=== PATIENT | male | born 1955 | race Caucasian/White ===

== ENCOUNTER 2020-10-24 08:03 | Day surgery (SDC) | payer MEDICARE, OTHER ==
[~2020-10-24] VITALS: Ht 177.8 cm; Wt 91.0 kg
[~2020-10-24 08:03] MED LIST: FINA1TAB16 PO; MELO7.5T31 PO; OMEP-110 PO; ONDA4TAB7 PO; OXYC1TAB14 PO; SULF-23 PO; TAMS0.4C2 PO
[2020-10-24] MEDS ORDERED: LABETALOL 5MG/ML, 20ML IV PRN (08:30)
[2020-10-24] MEDS ORDERED: ALBUTEROL SULFATE 2.5 MG/3 ML NPPB PRN (08:30)
[2020-10-24] MEDS ORDERED: HYDROmorphone 1 MG/ML, 1ML INJ IVPush PRN (08:30)
[2020-10-24] MEDS ORDERED: PROMETHAZINE 25 MG/ML, 1ML IVPush PRN (08:30)
[2020-10-24] MEDS ORDERED: MIDAZOLAM 1 MG/ML, 2ML IV PRN (08:30)
[2020-10-24] MEDS ORDERED: ACETAMINOPHEN 325 MG TABLET PO PRN (08:30)
[2020-10-24] MEDS ORDERED: MEPERIDINE/PF 25MG/0.5ML IVPush PRN (08:30)
[2020-10-24] MEDS ORDERED: OXYcodone 5 MG/5 ML ORAL.SOL UDC PO PRN (08:30)
[2020-10-24 08:35] VITALS: BP 120/80
[2020-10-24] MEDS ORDERED: INDOCYANINE GREEN 25 MG VIAL ONE (08:43)
[2020-10-24] MEDS ORDERED: LACTATED RINGERS 1,000 ML IV SCH (09:00)
[2020-10-24] MEDS ORDERED: CHLORHEXIDINE 15 ML UDC PO ONE (09:00)
[2020-10-24] MEDS ORDERED: EPINEPHRINE 1 MG/ML, 1ML ONE (09:08)
[2020-10-24] MEDS ORDERED: BUPIVACAINE/PF 0.5% ONE (09:08)
[2020-10-24] MEDS ORDERED: INDOCYANINE GREEN 25 MG VIAL IVPush ONE (09:30)
[2020-10-24] MEDS ORDERED: MIDAZOLAM 1 MG/ML, 2ML ONE (09:48)
[2020-10-24] MEDS ORDERED: FENTANYL PF 250 MCG/5ML ONE (09:49)
[2020-10-24] MEDS ORDERED: METHOCARBAMOL 1,000 MG in DEXTROSE 5% 100 ML IV PRN (10:00)
[2020-10-24] MEDS ORDERED: CEFAZOLIN 1,000 MG ONE (11:05)
[2020-10-24] MEDS ORDERED: PROPOFOL 10 MG/ML, 20ML ONE (11:05)
[2020-10-24] MEDS ORDERED: NEOSTIGMINE 1 MG/ML, 10ML ONE (11:05)
[2020-10-24] MEDS ORDERED: ROCURONIUM 10MG/ML,5ML ONE (11:05)
[2020-10-24] MEDS ORDERED: ONDANSETRON 2MG/ML, 2ML ONE (11:05)
[2020-10-24] MEDS ORDERED: LIDOCAINE-MPF 2% ,5ML ONE (11:05)
[2020-10-24] MEDS ORDERED: GLYCOPYRROLATE 0.2MG/1ML, 5ML ONE (11:05)
[2020-10-24] MEDS ORDERED: DEXAMETHASONE 4 MG/ML, 1ML ONE (11:05)
[2020-10-24] MEDS ORDERED: KETOROLAC 30 MG/1 ML ONE (11:05)
[2020-10-24] MEDS ORDERED: ONDA4TAB7 PO (11:20)
[2020-10-24] MEDS ORDERED: HYDR-2214 PO (11:20)
[2020-10-24] MEDS ORDERED: KETOROLAC 30 MG/1 ML IVPush PRN (11:30)
[2020-10-24] MEDS ORDERED: morphine SULFATE 10 MG/ML, 1ML IVPush PRN (11:30)
[2020-10-24] MEDS ORDERED: HYDROcodone/APAP 5/325 TABLET PO PRN (11:30)
[2020-10-24] MEDS ORDERED: ONDANSETRON 2MG/ML, 2ML IVPush PRN (11:30)
[2020-10-24] MEDS ORDERED: OXYcodone 5 MG/5 ML ORAL.SOL UDC ONE (11:37)
[2020-10-24] MEDS ORDERED: FENTANYL PF 100 MCG/2ML ONE (11:37)
[2020-10-24] MEDS: FENTANYL PF 100 MCG/2ML IV PRN ×2 (11:40→11:48)
[2020-10-24] MEDS ORDERED: SUGAMMADEX 200 MG/2 ML IVPush ONE (16:14)
[2020-10-24] MEDS ORDERED: CEFOTETAN 2 GM ONE (16:16)
== END 2020-10-24 14:55 | disposition home or self-care (01) ==
LOC: OUT 08:03
PROVIDERS: ATTEND Surgery
DX: K80.64 Calculus of gallbladder and bile duct with chronic cholecystitis without obstruction (principal); K21.9 Gastro-esophageal reflux disease without esophagitis; N40.0 Benign prostatic hyperplasia without lower urinary tract symptoms; Z20.822 Contact with and (suspected) exposure to COVID-19; Z79.899 Other long term (current) drug therapy
CPT/HCPCS: 47563; 88304; 93005; J0171; J1100; J1885; J2250; J2405; J2704; J2710; J3010; J7120; U0003; U0005; J0690